=== PATIENT | female | born 1950 | race Caucasian/White ===

== ENCOUNTER → 2017-02-07 | Outpatient (REF) | payer MEDICARE, OTHER | LOC: M LAB REF 16:20 | PROVIDERS: ATTEND Internal Medicine Endocrinology, Diabetes & Metabolism | DX: E04.1 Nontoxic single thyroid nodule (principal) ==

== ENCOUNTER → 2017-05-09 | Outpatient (REF) | payer MEDICARE, OTHER | LOC: M LABDRAW1 11:43 | PROVIDERS: ATTEND Physician Assistant Medical | DX: C50.919 Malignant neoplasm of unspecified site of unspecified female breast (principal) ==